=== PATIENT | female | born 1960 | race Two or more races ===

== ENCOUNTER → 2024-12-06 | Outpatient (CLI) | payer MEDICARE, MEDICAID, SELFPAY ==
--- NOTE | 2024-12-06 11:45 | XR_ITS ---
Examination: Screening digital mammography, bilateral Computer aided detection 3-D breast Tomosynthesis, bilateral Date and time of exam: December 06, 2024 1127 hours Compared to mammograms dating to April 16, 2021 Indication: Screening Technique: Nonmagnified MLO, CC views of the breasts to been obtained, reconstructed from 3-D Tomosynthesis images. R2 computer aided detection program utilized for evaluation of suspicious masses and/or abnormal calcifications. 3-D Tomosynthesis images obtained. Findings: Scattered areas of fibroglandular density. Benign calcifications. No interval suspicious masses Breast biopsy marker retroareolar region right breast again noted Impression: BI-RADS category II: Benign Findings. Recommend 1 year follow-up mammogram.
== END | disposition home or self-care (01) ==
LOC: CDIM 11:18
PROVIDERS: Referring Provider Family Medicine; Visit Provider Family Medicine
DX: Z12.31 Encounter for screening mammogram for malignant neoplasm of breast (principal); R92.323 Mammographic fibroglandular density, bilateral breasts; R92.1 Mammographic calcification found on diagnostic imaging of breast
CPT/HCPCS: 77063; 77067

== ENCOUNTER 2025-05-19 18:24 | Emergency (ER) | payer MEDICARE, MEDICAID, SELFPAY ==
[2025-05-19 18:55] VITALS: BP 190/99; BP 196/91; PULSE 66; RESP 16; TEMP 37.6; O2SAT 98
--- NOTE | 2025-05-19 19:13 | PD.EDHA ---
ED Headache RME/HPI General Chief Complaint: Headache Stated Complaint: HTN, HALL Time Seen by Provider: 05/19/25 19:12 Arrival date/time: 05/19/25 18:24 RME / HPI RME / HPI Narrative: Dr. Rice?s Main ED Evaluation: 65yo female with a history of HTN, DM presents to the ED for a chief complaint of intermittent left frontal headache x 3 days. Patient's headache has gotten worse over the last 1 day. She was seen at a clinic earlier today and was referred here to the ED due to her blood pressure being elevated. Maximum blood pressure reported was 180 systolically (baseline is 140). No photo sensitivity, N/V, chest pain, or shortness of breath. PSH includes cholecystectomy. Related Data Home Medications ?Medication ?Instructions ?Recorded ?Confirmed losartan 100 mg tablet 100 mg PO QDAY #0 tabs 02/01/16 08/25/19 saxagliptin 5 mg tablet (Onglyza) 5 mg PO QDAY #0 tabs 02/01/16 08/25/19 duloxetine 30 mg capsule,delayed 30 mg PO BID 05/24/18 08/25/19 release aspirin 81 mg tablet,delayed 1 tab PO QDAY 08/29/18 08/25/19 release carvedilol 12.5 mg tablet 12.5 mg PO BID 08/29/18 08/25/19 hydrochlorothiazide 25 mg tablet 25 mg PO QAM 08/25/19 08/25/19 metformin 1,000 mg tablet 100 mg PO BID 08/25/19 08/25/19 sulfamethoxazole 800 1 tab PO BID 08/25/19 08/25/19 mg-trimethoprim 160 mg tablet Previous Rx's ?Medication ?Instructions ?Recorded acetaminophen 325 mg tablet 650 mg (2 x 325 mg) PO QID PRN 01/14/22 (Tylenol) pain #20 tabs hydrocodone 5 mg-acetaminophen 325 1 tab PO Q4H PRN pain #14 tabs 01/20/22 mg tablet cyclobenzaprine 10 mg tablet 10 mg PO HS #14 tabs 08/24/23 meloxicam 7.5 mg tablet 7.5 mg PO QDAY #10 tabs 08/24/23 losartan 50 mg tablet 50 mg PO QDAY #30 tabs 05/19/25 Allergies Allergy/AdvReac Type Severity Reaction Status Date / Time hydrochlorothiazide Allergy Unknown Blurry Verified 05/19/25 18:29 Vision Review of Systems Review of Systems Systems Reviewed: All systems reviewed, normal except as documented Past Medical History Past Medical History NEUROLOGIC: Negative Neurological Disorders CARDIAC: Positive Cardiac Disorders, Angina, Edema and Hypertension; Negative Congestive Heart Failure RESPIRATORY: Positive Bronchitis; Negative Chronic Obstructive Pulmonary Disease (COPD) or Asthma GASTROINTESTINAL: Positive Gastrointestinal Disorders and Gall Bladder Disease; Negative Hepatitis GENITOURINARY: Negative Genitourinary Disorders or Renal Disease REPRODUCTIVE: Positive Previous Pregnancies MUSCULOSKELETAL: Positive Musculoskeletal Disorders and Arthritis ENDOCRINE: Positive Endocrine Disorders and Diabetes Mellitus Type 2; Negative Diabetes Mellitus Type 1 HEMATOLOGIC: Negative Blood Disorders or Sickle Cell Disease PSYCHO/SOCIAL: Positive Depression and Anxiety OTHER HISTORY: Positive Anesthesia Reactions and Chicken Pox; Negative Autoimmune Disease, Blood Transfusions, Human Immunodeficiency Virus (HIV), Measles, Mumps, Rubella ([place]ovenian Measles), Pertussis or Clostridium Difficile Family History FAMILY HISTORY: Positive Family Cardiac Disorders and Family Cancer; Negative Family Psychiatric Problems, Family Respiratory Disorders, Family Gastrointestinal Problems, Family Surgery or Family Anesthesia Reaction Surgical History SURGICAL: Positive Section; Negative Mastectomy Social History SMOKING STATUS: Never smoker SECOND HAND EXPOSURE: No ED Exam Narrative Physical exam: GENERAL APPEARANCE: alert and oriented x 4, well-developed, well-nourished, no acute distress VITALS: All vitals were reviewed and the pulse ox is 98% on room air, which is normal according to my interpretation. Modestly hypertensive. HEENT: Normocephalic, atraumatic; pupils equal, round, reactive to light; EOMI; fundoscopic exam is normal, no retinal hemorrhage; mucous membranes pink, moist; oropharynx clear NECK: Supple LUNGS: CTABL; no wheezes, no rales, no rhonchi HEART: Regular rate, regular rhythm; normal S1, S2; no murmurs ABDOMEN: non distended; normal BS; soft, no tenderness, no guarding, no rebound; no masses, no organomegaly, no hernia BACK: no CVA tenderness EXTREMITIES: atraumatic; no edema NEUROLOGIC: awake; alert and oriented x4; cranial nerves II-XII grossly intact; no focal sensory or motor deficits; normal [id number], gait not tested. PSYCHIATRIC: appropriate mood and affect SKIN: warm, dry, normal color; no rashes Course Quality Measures none Orders Category Date Time Status EKG (ED ONLY) *Do not use* NOW [facility] 05/19/25 19:28 Completed EKG (ED Only) Stat Exams 05/19/25 19:27 Draft XR chest 1V portable Stat Exams 05/19/25 19:27 Completed CBC [CBC] Stat Lab 05/19/25 19:44 Completed CMP [Comprehensive Metabolic Panel] Stat Lab 05/19/25 19:44 Completed Urinalysis, C/S if Indicated Stat Lab 05/19/25 20:15 Completed Enalaprilat Inj [Vasotec Inj] Med 05/19/25 19:27 Discontinued 2.5 mg IVP X1 ONE Sodium Chloride 0.9% 500 ml [Ns] 500 ml Med 05/19/25 19:41 Discontinued IV 500 mls/hr Sodium Chloride 0.9% [Ns] 50 ml Med 05/19/25 19:30 Discontinued IV X1 carVEDILOL [Coreg] Med 05/19/25 22:41 Discontinued 12.5 mg PO X1 ONE carVEDILOL [Coreg] Med 05/19/25 22:47 Discontinued 12.5 mg PO X1 ONE Vital Signs Vital signs: Vital Signs Temperature 99.6 F 05/19/25 18:55 Pulse Rate 66 05/19/25 18:55 Respiratory Rate 16 05/19/25 18:55 Blood Pressure 190/99 H 05/19/25 18:55 Pulse Oximetry (%) 98 05/19/25 18:55 Oxygen Delivery Method Room Air 05/19/25 18:55 Headache MDM Narrative MDM Narrative:: Scribe Attestation: 05/19/25 - Allyson Beebe am scribing for and in the presence of Dr. Rice. 65yo female with a history of HTN, DM presents to the ED for a chief complaint of intermittent left frontal headache x 3 days. Patient's headache has gotten worse over the last 1 day. Please see PE findings. Lab markings show CBC and CMP are unremarkable. Patient placed on cardiac exercise physiologist was moderately hypertensive at 180/120. She was hydrated with saline and treated with IV CHRISTELLE inhibitor with gradual reduction of BP to acceptable limits. Remained neurologically intact. Will likely add a 3rd agent to the patient's current Coreg and Losartan and discharge her home. Patient data External records reviewed:: [facility] previous records (Per chart review, patient was seen here on 10/15/23 for neck pain.) Clinical information provided by:: patient Social determinants that could affect healthcare access:: none Patient has the following chronic illnesses:: DM, HTN How is presenting disease/condition affected by chronic disease/condition?: exacerbated by Evaluation data The following diagnostics were reviewed and interpreted by me:: lab results, radiology exam(s) and EKG tracing(s) Lab and/or radiology exams considered but not ordered:: none Interpretation Summary: EKG done at 1934, NSR, rate of 61, normal intervals, no ectopy, left axis deviation, no ST segment changes, according to my interpretation. ------ [facility] Report Signed Patient: ELIUD LOPEZ Record#: [id number] Birthdate: 1960 Age/Sex: 65 / F Location: [facility] Attending Dr: Ordering Physician: Beck Guerra DO Date of Service: 05/19/25 Procedure(s): XR chest 1V portable Accession Number(s): [id number] cc: Beck Guerra DO; Javier Carnes MD; Avelino Richardson MD~ Examination: AP chest single view TECHNIQUE: AP portable upright chest single view Date and time: May 19, 2025, 2024 hours Comparison December 22, 2022 INDICATIONS: Chest pain headache shortness of breath beginning 2 days ago FINDINGS: Mild enlargement cardiac contour Mild vascular congestion. No lumbar pneumonia or pulmonary edema IMPRESSION: Mild vascular congestion. No lobar pneumonia or pulmonary edema Dictated By: Avelino Richardson MD Signed By: <Electronically signed by Avelino Richardson MD in OV> 05/19/25 2111 Medications / Prescriptions Medications or Prescriptions considered but not ordered:: none Medication administrations:: Medication Administration History Discontinued Medications Carvedilol (Carvedilol 12.5 Mg Tablet) 12.5 mg PO X1 ONE Stop: 05/19/25 22:42 Carvedilol (Carvedilol 12.5 Mg Tablet) 12.5 mg PO X1 ONE Stop: 05/19/25 22:48 Enalaprilat (Enalaprilat Inj 1.25 Mg/Ml Vial) 2.5 mg IVP X1 ONE Stop: 05/19/25 19:28 Last Admin: 05/19/25 20:02 Dose: 2.5 mg Documented By: CALLIE Sodium Chloride (Ns) 50 mls @ 500 mls/hr IV X1 ONE Stop: 05/19/25 19:35 Last Admin: 05/19/25 19:46 Dose: Not Given Documented By: CALLIE Non-Admin Reason: Cancelled by Provider Sodium Chloride (Ns) 500 mls @ 500 mls/hr IV .Q1H ONE Stop: 05/19/25 20:40 Last Infusion: 05/19/25 21:12 Dose: Infused Documented By: Admin: 05/19/25 20:03 Dose: 500 mls/hr Documented By: CALLIE see above Consultations Consultation(s) initiated? (list below): No Diagnosis Differential diagnosis headache: migraine, tension headache and other (uncontrolled hypertension) Most likely diagnosis given after review of the tests above:: see clinical impression below Admission Indicated Admission indicated?: not indicated Admission Request Was there a request for admission?: No Disposition Plan Disposition Plan: Discharge Discharge Attestation Discharge Attestation: The patient and all family members were given an opportunity to ask questions and understood the discharge instructions. Discharge instructions specifically effects, indications for sooner follow up or return to the emergency department, and the expected course of current diagnosis. Patient condition: Stable Discharge Plan Plan Patient Disposition: HOME (Self Care) Prescriptions/Referrals Prescriptions/Med Rec: New losartan 50 mg tablet 50 mg PO QDAY Qty: 30 0RF Rx Instructions: Take usual 100 mg in the a.m. and add 50 mg in the p.m. No Action losartan 100 mg Tablet 100 mg PO QDAY Qty: 0 Onglyza 5 MG tablet 5 mg PO QDAY Qty: 0 duloxetine 30 mg Capsule,Delayed Release(Dr/Ec) 30 mg PO BID carvedilol 12.5 mg Tablet 12.5 mg PO BID aspirin 81 mg Tablet,Delayed Release (Dr/Ec) 1 tab PO QDAY hydrocodone-acetaminophen 5-325 mg tablet 1 tab PO Q4H MDD 4 PRN (Reason: pain) Qty: 14 0RF sulfamethoxazole-trimethoprim 800-160 mg tablet 1 tab PO BID metformin 1,000 mg tablet 100 mg PO BID hydrochlorothiazide 25 mg tablet 25 mg PO QAM acetaminophen [Tylenol] 325 mg tablet 650 mg PO QID PRN (Reason: pain) Qty: 20 0RF meloxicam 7.5 mg tablet 7.5 mg PO QDAY Qty: 10 0RF cyclobenzaprine 10 mg tablet 10 mg PO HS Qty: 14 0RF Referrals: Javier Carnes MD [Primary Care Provider] - In 1 week Problem List Clinical Impression: Accelerated hypertension Patient/Caregiver Discharge Instructions Discharge Activity: activity as tolerated Other Activity Instructions:: Add 50 mg losartan tablet at night and continue the 100 mg daily dose in the a.m. Continue all other medications as directed and continue to monitor blood pressure twice daily. Education Materials: Blood Pressure Check Steps Additional Instructions: Continue losartan 100 mg in the a.m. and add 50 mg tablet every afternoon. Continue to monitor blood pressure twice daily. Follow-up with primary care doctor in 7 days Print Language: Faroese Stand Alone Forms: Felicia Award Info., Patient Portal Info Letter
--- NOTE | 2025-05-19 19:27 | XR_ITS ---
Examination: AP chest single view TECHNIQUE: AP portable upright chest single view Date and time: May 19, 2025, 2024 hours Comparison December 22, 2022 INDICATIONS: Chest pain headache shortness of breath beginning 2 days ago FINDINGS: Mild enlargement cardiac contour Mild vascular congestion. No lumbar pneumonia or pulmonary edema IMPRESSION: Mild vascular congestion. No lobar pneumonia or pulmonary edema
--- NOTE | 2025-05-19 19:27 | EKG_ITS ---
[facility] Test Date: 2025-05-19 Pat Name: ELIUD LOPEZ Department: Room: - Gender: Female [employer]: : 1960 Requested By: Beck Coto Order Number: [id number] Reading MD: Beck Coto Measurements Intervals Baker Rate: 61 P: 17 WA: 128 QRS: 13 QRSD: 78 T: 28 QT: 390 QTc: 394 Interpretive Statements SINUS RHYTHM Compared to ECG 12/22/2022 00:22:54 No significant changes /[id number]/S0/[id number]
[2025-05-19 20:02] VITALS: BP 219/108; PULSE 68
[2025-05-19] MEDS: ENALAPRILAT INJ 1.25 MG/ML VIAL 2.5 MG IVP (20:02)
[2025-05-19 20:03] VITALS: BMI 26.6
[2025-05-19 20:03] LABS: Basophils # (Auto) 0.0 Thou/mm3 (0.0-0.2); Basophils % (Auto) 0 % (0-2.5); Eosinophils # (Auto) 0.1 Thou/mm3 (0.0-0.5); Eosinophils % (Auto) 1 % (0-10); Hematocrit 35.0 % (36.0-46.0); Hemoglobin 11.8 g/dL (12.0-16.0); Immature Granulocytes Auto 0.03 Thou/mm3 (0.00-0.00); Lymphocytes # (Auto) 3.0 Thou/mm3 (1.0-4.8); Lymphocytes % (Auto) 28 % (10-50); Mean Corpuscular HGB Conc 33.7 g/dl (31.0-37.0); Mean Corpuscular Hemoglobin 31.1 pg (25.0-35.0); Mean Corpuscular Volume 92 fL (80-100); Monocytes # (Auto) 0.7 Thou/mm3 (0.0-0.8); Monocytes % (Auto) 7 % (0-12); Neutrophils # (Auto) 6.6 Thou/mm3 (1.8-7.7); Neutrophils % (Auto) 63 % (37-80); Nucleated Red Blood Cell # 0.00 Thou/mm3 (0.00-0.00); Nucleated Red Blood Cell % 0 /100 WBC (0); Platelet Count 246 Thou/mm3 (140-440); RDW Standard Deviation 44.2 fL (36.4-46.3); Red Blood Count 3.80 Miln/mm3 (4.00-5.20); White Blood Count 10.4 Thou/mm3 (3.6-11.0)
[2025-05-19] MEDS: SODIUM CHLORIDE 0.9% 500 ML 500 ML IV (20:03)
[2025-05-19 20:18] LABS: Alanine Aminotransferase 18 U/L (10-49); Albumin, Serum 4.5 gm/dL (3.4-4.8); Albumin/Globulin Ratio 1.5 (1.2-2.2); Alkaline Phosphatase 70 U/L (46-116); Anion Gap 8 (7-16); Aspartate Amino Transferase 17 U/L (0-34); BUN/Creatinine Ratio 21 Ratio (12-20); Bilirubin,Total 0.5 mg/dL (0.3-1.2); Blood Urea Nitrogen 15 mg/dL (9-23); Calcium 9.7 mg/dL (8.3-10.6); Calcium (Corrected) 9.7 mg/dL (8.5-10.1); Carbon Dioxide 26.8 mMol/L (20.0-31.0); Chloride 105 mMol/L (98-107); Creatinine (Component) 0.7 mg/dL (0.6-1.3); Estimated Creatinine Clearance 80.7 mL/min (>60); Globulin 3.0 gm/dL (2.3-3.5); Glucose 130 mg/dL (74-106); Osmolality,Calculated 282 (275-295); Potassium 4.5 mMol/L (3.4-5.1); Sodium 140 mMol/L (136-145); Total Protein 7.5 gm/dL (5.7-8.2); eGFR > 60 See Note
[2025-05-19 20:22] LABS: Collection Type, Urine Clean Catch
[2025-05-19 20:35] LABS: Amorphous Crystals,Urine Present (Absent); Bacteria,Urine Rare; Bilirubin,Urine Negative (Negative); Blood,Urine Trace (Negative); Clarity,Urine Clear (Clear/Hazy); Color,Urine Colorless (Lt Yel-Yel); Culture Indicated,Urine Not Indicated; Glucose, Urine Negative (Negative); Ketones,Urine Negative (Negative); Leukocyte Esterase,Urine Positive (Negative); Nitrite,Urine Negative (Negative); PH,Urine 6.0 (5.0-7.0); Protein,Urine Negative (Neg - Trace); RBC,Urine < 1 /hpf (0-3); Specific Gravity,Urine 1.006 (1.001-1.035); Squamous Epithelial Cell,Urine 2 /hpf (0-5); Urobilinogen,Urine Negative mg/dL (0.0-1.0); WBC,Urine 1 /hpf (0-5)
[2025-05-19 20:45] VITALS: BP 200/82; PULSE 67; RESP 18; TEMP 36.7; O2SAT 97
[2025-05-19 21:00] VITALS: BP 186/89; PULSE 68; RESP 18; O2SAT 97
[2025-05-19 22:46] VITALS: BP 177/80; PULSE 62; RESP 19; TEMP 37.4; O2SAT 97
[2025-05-19 23:10] VITALS: BP 185/81; PULSE 62
== END 2025-05-19 23:15 | disposition home or self-care (01) ==
PROVIDERS: Emergency Provider Emergency Medicine; PCP Family Medicine
DX: I10 Essential (primary) hypertension (principal); E11.9 Type 2 diabetes mellitus without complications; R09.89 Other specified symptoms and signs involving the circulatory and respiratory systems
CPT/HCPCS: 36415; 71045; 80053; 81001; 85025; 93005; 96361; 96372; 96374; 99283; J7999; A9270